=== PATIENT | male | born 1960 | race Asian ===

== ENCOUNTER 2017-09-19 08:21 | Day surgery (SDC) | payer MEDICAID ==
[~2017-09-19] VITALS: Ht 163.6 cm; Wt 80.6 kg
[2017-09-19] VITALS (8 sets, daily range): BP systolic 105–140; BP diastolic 68–86
[~2017-09-19 08:21] MED LIST: ASPI-1264 PO; CINA30TA PO; CLOP75TA15 PO; HYDR25SU48 RC; KEN0.1O TP; LACT10SO PO; LANT1000 PO; METO5TAB98 PO; SIMV20TA PO; VERA180T PO
[2017-09-19] MEDS ORDERED: cefazolin/dext.iso 2gm/50ml 50 ML IV ONE (08:54)
[2017-09-19] MEDS ORDERED: normal saline 1000ml 1,000 ML IV SCH (08:55)
[2017-09-19 09:24] LABS: BASOPHILS # (AUTO) 0.1 X10'3 (0-0.2); BASOPHILS % (AUTO) 0.8 % (0-1); EOSINOPHILS # (AUTO) 0.8 X10'3 (0-0.9); EOSINOPHILS % (AUTO) 10.7 % (0-6); HEMATOCRIT 34.9 % (42.0-52.0); HEMOGLOBIN 11.6 g/dl (14.0-17.9); LYMPHOCYTES # (AUTO) 1.6 X10'3 (1.1-4.8); LYMPHOCYTES % (AUTO) 21.1 % (21-51); MEAN CORPUSCULAR HEMOGLOBIN 31.9 PG (27.0-31.0); MEAN CORPUSCULAR HGB CONC 33.2 % (33.0-36.5); MEAN CORPUSCULAR VOLUME 96.2 FL (78-98); MEAN PLATELET VOLUME 7.7 FL (7.4-10.4); MONOCYTES # (AUTO) 0.6 X10'3 (0-0.9); MONOCYTES % (AUTO) 8.5 % (2-12); NEUTROPHILS # (AUTO) 4.3 X10'3 (1.8-7.7); NEUTROPHILS % (AUTO) 58.9 % (42-75); PLATELET COUNT 224 X10'3 (140-440); RED BLOOD COUNT 3.62 X10'6 (4.70-6.10); RED CELL DISTRIBUTION WIDTH 15.6 % (11.5-14.5); WHITE BLOOD COUNT 7.3 X10'3 (4.5-11.0)
[2017-09-19] MEDS ORDERED: heparin 1,000 UNITS/NS 500ml 500 ML ONE (10:44)
[2017-09-19] MEDS ORDERED: LIDOcaine 1%/PF (10mg/ml) 5ml vial ONE (10:44)
[2017-09-19] MEDS ORDERED: fentaNYL/PF 50MCG/1 ML 2ML syringe ONE (10:44)
[2017-09-19] MEDS ORDERED: iohexol 300mg/ml 100ml inj. ONE ×2 (10:44→10:45)
[2017-09-19] MEDS ORDERED: fentaNYL/PF 50MCG/1 ML 2ML syringe IV PRN (11:10)
[2017-09-19] MEDS ORDERED: LIDOcaine 1% (10mg/ml) 2ml vial SQ ONE (11:10)
== END 2017-09-19 13:15 | disposition home or self-care (01) ==
LOC: SSTAY O 08:21
PROVIDERS: ATTEND Radiology Diagnostic Radiology
DX: T82.858A Stenosis of other vascular prosthetic devices, implants and grafts, initial encounter (principal); I12.0 Hypertensive chronic kidney disease with stage 5 chronic kidney disease or end stage renal disease; N18.6 End stage renal disease; I25.10 Atherosclerotic heart disease of native coronary artery without angina pectoris; E78.5 Hyperlipidemia, unspecified; Z87.891 Personal history of nicotine dependence; Z90.89 Acquired absence of other organs; Z90.5 Acquired absence of kidney; Z99.2 Dependence on renal dialysis; Z95.5 Presence of coronary angioplasty implant and graft; Z98.890 Other specified postprocedural states; Z79.82 Long term (current) use of aspirin; Z88.8 Allergy status to other drugs, medicaments and biological substances; Z79.899 Other long term (current) drug therapy; Y83.2 Surgical operation with anastomosis, bypass or graft as the cause of abnormal reaction of the patient, or of later complication, without mention of misadventure at the time of the procedure; Y92.89 Other specified places as the place of occurrence of the external cause
CPT/HCPCS: 36415; 36902; 85025; C1725; C1769; C1894; J1644; J2001; J3010; J7030; Q9967; A4620

== ENCOUNTER 2018-08-04 09:20 | Emergency (ER) | payer MEDICAID ==
[~2018-08-04] VITALS: Ht 162.6 cm; Wt 77.3 kg
[~2018-08-04 09:20] MED LIST changes: -ASPI-1264 PO; -KEN0.1O TP; -LANT1000 PO
[2018-08-04] MEDS ORDERED: ketorolac trometh. 30mg/ml inj. IV ONE (09:35)
[2018-08-04] MEDS ORDERED: normal saline 1000ML IV soln IVB ONE (09:35)
[2018-08-04 10:02] LABS: BASOPHILS # (AUTO) 0.1 X10'3 (0-0.2); BASOPHILS % (AUTO) 0.9 % (0-1); EOSINOPHILS # (AUTO) 0.7 X10'3 (0-0.9); EOSINOPHILS % (AUTO) 10.3 % (0-6); HEMOGLOBIN 12.6 g/dl (14.0-17.9); LYMPHOCYTES # (AUTO) 1.2 X10'3 (1.1-4.8); LYMPHOCYTES % (AUTO) 16.6 % (21-51); MEAN CORPUSCULAR VOLUME 93.9 FL (78-98); MEAN PLATELET VOLUME 8.3 FL (7.4-10.4); MONOCYTES # (AUTO) 0.5 X10'3 (0-0.9); MONOCYTES % (AUTO) 6.5 % (2-12); NEUTROPHILS # (AUTO) 4.7 X10'3 (1.8-7.7); NEUTROPHILS % (AUTO) 65.7 % (42-75); PLATELET COUNT 261 X10'3 (140-440); RED BLOOD COUNT 4.05 X10'6 (4.70-6.10); RED CELL DISTRIBUTION WIDTH 16.6 % (11.5-14.5); WHITE BLOOD COUNT 7.2 X10'3 (4.5-11.0)
[2018-08-04 10:18] LABS: ALANINE AMINOTRANSFERASE 32 U/L (12-78); ALBUMIN 3.2 G/DL (3.4-5.0); ALKALINE PHOSPHATASE 85 IU/L (46-116); ANION GAP 10 (8-16); ASPARTATE AMINO TRANSFERASE 16 U/L (10-37); BILIRUBIN,TOTAL 0.2 MG/DL (0.1-1.0); BLOOD UREA NITROGEN 20 MG/DL (7-18); BUN/CREATININE RATIO 3.6 (5.4-32.0); CALCIUM 9.2 MG/DL (8.5-10.1); CHLORIDE 100 MMOL/L (99-107); CREATININE 5.54 MG/DL (0.60-1.10); GLUCOSE 122 MG/DL (70-104); SODIUM 138 MMOL/L (135-145); TOTAL CARBON DIOXIDE 28.4 MMOL/L (24-32); TOTAL PROTEIN 6.4 G/DL (6.4-8.2); eGFR 11 ML/MIN
[2018-08-04 10:24] LABS: POTASSIUM 3.4 MMOL/L (3.5-5.1)
[2018-08-04] MEDS ORDERED: normal saline 1000ML IV soln IV ONE (10:30)
[2018-08-04] MEDS ORDERED: cloNIDine 0.1 mg tablet PO ONE (10:55)
[2018-08-04 11:06] LABS: ETHANOL < 0.010 GM/DL (0.0-0.010)
[2018-08-04 11:37] VITALS: BP 169/91
== END 2018-08-04 11:46 | disposition home or self-care (01) ==
LOC: ER 09:21
DX: I12.0 Hypertensive chronic kidney disease with stage 5 chronic kidney disease or end stage renal disease (principal); E11.22 Type 2 diabetes mellitus with diabetic chronic kidney disease; N18.6 End stage renal disease; Z99.2 Dependence on renal dialysis; Z79.899 Other long term (current) drug therapy
CPT/HCPCS: 36415; 80053; 80320; 84484; 85025; 93005; 96361; 96374; 99284; J1885; J7030